=== PATIENT | female | born 1930 | race Caucasian/White ===

== ENCOUNTER → 2016-04-25 13:35 | Outpatient (CLI) | payer MEDICARE, BC ==
[2016-03-27 12:39] VITALS: BMI 27.1
[~2016-04-25 13:35] MED LIST: ACETAMINOPHEN500 M1 PO; ASPIRIN81 MG PO; BACLOFEN10 MG PO; CALAN120 MG PO; DYAZIDE 37.5/251 CAP PO; FISH OIL 1,0001 CA1 PO; HYDROCODONE-APA1 TAB PO; K-DUR20 MEQ PO; METOPROLOL TART50 MG PO; MOBIC7.5 MG PO; MYRBETRIQ50 MG PO; NIFEDIPINE ER60 MG PO; NORMODYNE / TR200 MG PO; OS-CAL500 MG PO; PLAVIX75 MG PO; PRILOSEC20 MG PO; TAMOXIFEN CITRA20 MG PO; VITAMIN D31000 UNI2 PO
[2016-04-25 15:47] LABS: ANION GAP 12.4 mmol/L (8-16); CALCIUM 9.3 mg/dL (8.5-10.1); CARBON DIOXIDE 26.9 mmol/L (21.0-32.0); CREATININE - SERUM 1.1 mg/dL (0.6-1.3); POTASSIUM - SERUM 4.3 mmol/L (3.5-5.1)
== END | disposition home or self-care (01) ==
LOC: D.LABREF 13:35
PROVIDERS: Family Medicine
DX: I70.1 Atherosclerosis of renal artery (principal); I50.9 Heart failure, unspecified; I15.0 Renovascular hypertension; Z79.02 Long term (current) use of antithrombotics/antiplatelets

== ENCOUNTER → 2016-08-19 17:09 | Outpatient (CLI) | payer MEDICARE, BC ==
[2016-03-27 12:39] VITALS: BMI 27.1
== END | disposition home or self-care (01) ==
LOC: D.MAMMO 09:00
DX: C50.212 Malignant neoplasm of upper-inner quadrant of left female breast (principal); C50.219 Malignant neoplasm of upper-inner quadrant of unspecified female breast

== ENCOUNTER 2017-10-19 08:00 | Outpatient (CLI) | payer MEDICARE, BC ==
[2016-03-27 12:39] VITALS: BMI 27.1
== END 2017-10-19 10:43 | disposition home or self-care (01) ==
LOC: D.MAMMO 08:00
DX: Z85.3 Personal history of malignant neoplasm of breast (principal); R92.8 Other abnormal and inconclusive findings on diagnostic imaging of breast

== ENCOUNTER 2019-01-18 13:00 | Outpatient (CLI) | payer MEDICARE, BC ==
[2016-03-27 12:39] VITALS: BMI 27.1
== END 2019-01-18 13:30 | disposition home or self-care (01) ==
LOC: D.MAMMO 13:00
PROVIDERS: ATTEND Internal Medicine Medical Oncology
DX: C50.212 Malignant neoplasm of upper-inner quadrant of left female breast (principal)